=== PATIENT | male | born 1970 | race Hispanic/Latino ===

== ENCOUNTER 2017-09-20 15:38 | Inpatient (IN) | payer BC ==
[~2017-09-20] VITALS: Ht 174 cm; Wt 78.2 kg
[2017-09-20] MEDS ORDERED: MORPHINE SULFATE 4 MG/ML SYR IV STA (15:43)
[2017-09-20] MEDS ORDERED: SODIUM CHLORIDE 0.9% 1000ML 1,000 ML IV STA (15:43)
[2017-09-20] MEDS ORDERED: ONDANSETRON HCL INJ 2 MG/ML VIAL IV STA (15:43)
[2017-09-20] MEDS ORDERED: MORPHINE SULFATE 2 MG/ML SYR IV PRN ×2 (16:15→18:30)
[2017-09-20] MEDS ORDERED: SODIUM CHLORIDE FLUSH 10 ML SYR INJ PRN (16:15)
[2017-09-20] MEDS ORDERED: HYDROMORPHONE 1MG/1ML INJ IV PRN (16:15)
[2017-09-20] MEDS ORDERED: ONDANSETRON HCL INJ 2 MG/ML VIAL IV PRN (16:15)
--- NOTE | 2017-09-20 16:44 | Diagnostic Imaging Report ---
PROCEDURE:X-RAY RIGHT FOOT, COMPLETE COMPARISON:None. INDICATIONS:RULE OUT OSTEO RIGHT FOOT FINDINGS: There are no fractures, dislocations, lytic or blastic lesions. No evidence of periosteal reaction or erosion. No abnormal soft tissue calcification. Incidentally seen os trigonum and posterior calcaneal enthesophyte. The bones are well-mineralized. The soft-tissues are unremarkable. CONCLUSION: No evidence of osteomyelitis. If there is high clinical concern for osteomyelitis, consider obtaining MRI for further evaluation. Dictated by: Shine Humphrey M.D. on 09/20/2017 at 16:45 Electronically approved by: Shine Humphrey M.D. on 09/20/2017 at 16:45
[2017-09-20] MEDS ORDERED: LORAZEPAM INJ 2 MG/ML VIAL IV ONE (17:30)
[2017-09-20] MEDS ORDERED: METOPROLOL TARTRATE INJ 1 MG/ML VIAL IV ONE (17:30)
[2017-09-20] MEDS: VANCOMYCIN 1GM/NS 250 ML 250 ML IV SCH (17:42)
[2017-09-20 17:44] LABS: BASOPHILS # (AUTO) 0.1 (0.0-0.1); BASOPHILS % 0.8 % (0.0-1.0); EOSINOPHILS % 0.2 % (0.0-6.0); HEMATOCRIT 44.3 % (38.2-49.6); HEMOGLOBIN 15.1 g/dL (14.0-18.0); LYMPHOCYTES # (AUTO) 2.5 (1.0-3.2); LYMPHOCYTES % 20.6 % (18.0-39.1); MEAN CORPUSCULAR HEMOGLOBIN 28.4 pg (28-32); MEAN CORPUSCULAR HGB CONC 34.1 g/dL (31-35); MEAN CORPUSCULAR VOLUME 83.3 fL (81-99); MONOCYTES % 8.3 % (4.4-11.3); NEUTROPHILS # (AUTO) 8.4 (2.1-6.9); NEUTROPHILS % 67.7 % (38.7-80.0); PLATELET COUNT 387 x10e3/uL (140-360); RED BLOOD COUNT 5.32 x10e6/uL (4.3-5.7); RED CELL DISTRIBUTION WIDTH 11.7 % (11.7-14.4)
[2017-09-20 18:00] LABS: ALANINE AMINOTRANSFERASE 30 IU/L (0-55); ALBUMIN 3.6 g/dL (3.5-5.0); ALBUMIN/GLOBULIN RATIO 0.7 (0.8-2.0); ALKALINE PHOSPHATASE 124 IU/L (40-150); ANION GAP 19.8 mmol/L (8-16); BLOOD UREA NITROGEN 17 mg/dL (7-26); BUN/CREATININE RATIO 18 (6-25); CARBON DIOXIDE 20 mmol/L (22-29); CHLORIDE 100 mmol/L (98-107); CREATININE, SERUM 0.92 mg/dL (0.72-1.25); EST GLOMERULAR FILTRATION RATE > 60 ML/MIN (60-); GLUCOSE 309 mg/dL (74-118); POTASSIUM 3.8 mmol/L (3.5-5.1); SODIUM 136 mmol/L (136-145)
[2017-09-20 18:01] LABS: CHOL/HDL RATIO 4.9 (3.9-4.7)
[2017-09-20 18:21] LABS: THYROID STIMULATING HORMONE 0.93 uIU/mL (0.350-4.940)
[2017-09-20 18:28] LABS: LYMPHOCYTES % (MANUAL) 20 % (19-48); MONOCYTES % (MANUAL) 9 % (3.4-9.0); NEUTROPHILS % (MANUAL) 69 % (40-74); RBC MORPHOLOGY COMMENT NORMAL
[2017-09-20 18:29] LABS: PLATELET ESTIMATE SLIGHTLY INCREASED; PLATELET MORPHOLOGY COMMENT NORMAL
[2017-09-20] MEDS ORDERED: DEXTROSE 50% SYRINGE 50 ML IV PRN (18:30)
[2017-09-20] MEDS ORDERED: SODIUM CHLORIDE 0.9% 1000ML 1,000 ML ONE (18:33)
[2017-09-20] MEDS: METOPROLOL TARTRATE 50 MG TAB PO SCH ×2 (18:36→22:00)
[2017-09-20] MEDS: SODIUM CHLORIDE 0.9% 1000ML 1,000 ML IV SCH (18:36)
[2017-09-20] MEDS ORDERED: CLINDAMYCIN HC300 MG PO (18:43)
--- OUTSIDE RECORDS SUMMARY | 2017-09-20 18:55 | XMS REPORT ---
Author Author [facility] Address Unknown Phone Unavailable Care Team Providers Care Crepe Sole Wire Brusher Name Role Phone AKOSUA CLEMONS Unavailable Unavailable Problems This patient has no known problems. Allergies, Adverse Reactions, Alerts This patient has no known allergies or adverse reactions. Medications This patient has no known medications. Results Test Description Test Time Test Comments Text Results Atomic Results Result Comments FOOT RIGHT COMPLETE [facility] [address] [address] Patient Name: CAMILA JAVED MR #: [id number] : 1970 Age/Sex: 47/M Req # : [id number] Adm Physician: Ordered by: NYASIA WHEELER [employer]PENTER [employer]INTENANCE Report #: [id number] Location: ER Room/Bed: Procedure: [id number] DX/FOOT RIGHT COMPLETE Exam Date: 09/20/17 Exam Time : 1620 REPORT STATUS: Signed PROCEDURE: X-RAY RIGHT FOOT, COMPLETE COMPARISON: None. INDICATIONS: RULE OUT OSTEO RIGHT FOOT FINDINGS: There are no fractures, dislocations, lytic or blastic lesions. No evidence of periosteal reaction or erosion. No abnormal soft tissue calcification. Incidentally seen os trigonum and posterior calcaneal enthesophyte. The bones are well-mineralized. The soft-tissues are unremarkable. CONCLUSION: No evidence of osteomyelitis. If there is high clinical concern for osteomyelitis, consider obtaining MRI for further evaluation. Dictated by: Shine Dominguez M.D. on 09/20/2017 at 16:45 Electronically approved by: Shine Dominguez M.D. on 09/20/2017 at 16 :45 Dictated By: SHINE DOMINGUEZ MD 44 Transcribed By: ERIC on 09/20/171644 COPY TO: NYASIA WHEELER NP
--- NOTE | 2017-09-20 20:39 | History and Physical ---
PRIMARY CARE PHYSICIAN: None. CHIEF COMPLAINT: Right foot infection. HISTORY OF PRESENT ILLNESS: This is a 47-year-old man with no significant medical history who developed, what he described as, a pimple on the dorsal surface of his right foot about 10 days ago. He popped it and then 2 days later noted that the area became red and was tender. Due to worsening symptoms, he went to a 24-hour urgent care center who referred him to Dr. Vega. The patient was referred here to the hospital for management. The patient does admit to family history of diabetes in both parents, but he does not have a personal history of diabetes. His blood sugar is found to be 309 on lab test. He is admitted for further evaluation and management. PAST MEDICAL HISTORY: None. PAST SURGICAL HISTORY: None. ALLERGIES: PER ELECTRONIC MEDICAL RECORDS. FAMILY HISTORY: Diabetes in mother and father. SOCIAL HISTORY: The patient is . He has 2 children. Occasional cigarettes. Occasional alcohol. He has a [employer] company. MEDICATIONS: None. REVIEW OF SYSTEMS: Denies any chest pain, shortness of breath, fever or chills or sweats. Denies any polyuria or polydipsia. PHYSICAL EXAMINATION VITAL SIGNS: Reviewed. GENERAL APPEARANCE: A tired-appearing man resting in the bed. HEENT: Anicteric. Pupils responsive to light. No oral lesions. No sinus tenderness. CARDIOVASCULAR: Normal S1 and S2. Rapid heart rate. LUNGS: Good breath sounds with no wheezing. ABDOMEN: Soft and nontender. Nondistended. EXTREMITIES: The left leg appears normal. The left foot is normal. On the right foot on the dorsal surface he has 1st MTP joint erythema with what appears to be an ulcer, erythema, warmth and tenderness. There is erythema in a band-like pattern around the foot, dorsal surface. There is some pus at the site. NEUROLOGIC: Alert and oriented x3. Moving all extremities. SKIN: Dry. PSYCHIATRIC: Flat affect. LABS: Reviewed. MEDICATIONS: Reviewed. ASSESSMENT AND PLAN: A 47-Year-old man. 1. Newly diagnosed diabetes mellitus. Will treat with insulin regimen. Obtain lipid panel. 2. Diabetic foot ulcer of the right foot. Will treat empirically with antibiotics. Follow up cultures. Will obtain a wound culture. Dr. Vega is on board. 3. Hypertensive urgency. Blood pressure as high as 190/91. Will treat with medication regimen. 4. Overweight state. BMI is 28.1. Would benefit from caloric restriction, outpatient. 5. Tachycardia. Will treat with beta hipolito for control of blood pressure and heart rate. 6. Metabolic acidosis. Will rehydrate the patient. 7. Prophylaxis: Use Pepcid. DISPOSITION: IV antibiotics. Podiatry consultation. Diabetes teaching. . Control blood pressure. Job#: [id number]
[2017-09-20] MEDS: INSULIN REGULAR, HUMAN 100 UNIT/1 ML 3ML VIAL SQ SCH (21:07)
[2017-09-20] MEDS: INSULIN DETEMIR 100 UNIT/ML PEN SQ SCH (21:08)
[2017-09-20 21:30] VITALS: BP 159/92
[2017-09-20] MEDS: SIMVASTATIN 20 MG TAB PO SCH (22:00)
[2017-09-20] MEDS ORDERED: SODIUM CHLORIDE 0.9% 250ML 250 ML ONE (22:23)
[2017-09-20] MEDS: PIPER-TAZ 3.375 GM 50 ML IV SCH (23:00)
[2017-09-20 23:59] VITALS: BP 159/92
[2017-09-21] VITALS (8 sets, daily range): BP systolic 147–185; BP diastolic 77–92
[2017-09-21] MEDS: VANCOMYCIN 1GM/NS 250 ML 250 ML IV SCH ×2 (04:04→15:48)
[2017-09-21] MEDS: PIPER-TAZ 3.375 GM 50 ML IV SCH ×3 (05:38→21:50)
[2017-09-21] MEDS: METOPROLOL TARTRATE 50 MG TAB PO SCH ×3 (06:49→21:50)
[2017-09-21 06:56] LABS: BASOPHILS # (AUTO) 0.1 (0.0-0.1); BASOPHILS % 1.3 % (0.0-1.0); EOSINOPHILS # (AUTO) 0.1 (0.0-0.4); EOSINOPHILS % 1.3 % (0.0-6.0); HEMATOCRIT 38.5 % (38.2-49.6); LYMPHOCYTES # (AUTO) 2.6 (1.0-3.2); LYMPHOCYTES % 25.8 % (18.0-39.1); MEAN CORPUSCULAR HEMOGLOBIN 28.6 pg (28-32); MEAN CORPUSCULAR HGB CONC 33.8 g/dL (31-35); MEAN CORPUSCULAR VOLUME 84.8 fL (81-99); MONOCYTES # (AUTO) 0.9 (0.2-0.8); MONOCYTES % 8.9 % (4.4-11.3); NEUTROPHILS # (AUTO) 5.9 (2.1-6.9); NEUTROPHILS % 59.2 % (38.7-80.0); PLATELET COUNT 340 x10e3/uL (140-360); RED BLOOD COUNT 4.54 x10e6/uL (4.3-5.7); RED CELL DISTRIBUTION WIDTH 11.9 % (11.7-14.4)
[2017-09-21 07:26] LABS: ALANINE AMINOTRANSFERASE 26 IU/L (0-55); ALBUMIN 2.8 g/dL (3.5-5.0); ALBUMIN/GLOBULIN RATIO 0.7 (0.8-2.0); ALKALINE PHOSPHATASE 96 IU/L (40-150); ANION GAP 12.3 mmol/L (8-16); BLOOD UREA NITROGEN 12 mg/dL (7-26); BUN/CREATININE RATIO 15 (6-25); CALCIUM 8.9 mg/dL (8.4-10.2); CARBON DIOXIDE 26 mmol/L (22-29); CHLORIDE 104 mmol/L (98-107); EST GLOMERULAR FILTRATION RATE > 60 ML/MIN (60-); GLUCOSE 237 mg/dL (74-118); POTASSIUM 4.3 mmol/L (3.5-5.1); SODIUM 138 mmol/L (136-145)
--- NOTE | 2017-09-21 07:40 | Progress Note ---
DATE: September 21, 2017 TIME: 7:13 a.m. OVERNIGHT: No events. REVIEW OF SYSTEMS: Denies any dizziness or chest pain. VITAL SIGNS: Reviewed. PHYSICAL EXAMINATION GENERAL: A tired-appearing man resting in the bed. HEENT: Anicteric. CARDIOVASCULAR: Normal S1 and S2. LUNGS: Moderate breath sounds. ABDOMEN: Soft. Nontender, nondistended. EXTREMITIES: Right foot with lesion in the 1st MTP joint with erythema, tenderness, warmth, and edema and erythema of the surrounding region. NEUROLOGIC: Alert and oriented x3. Moving all extremities. SKIN: Dry. PSYCHIATRIC: Normal affect. LABS: Reviewed. MEDICATIONS: Reviewed. ASSESSMENT AND PLAN: A 47-year-old man. 1. Newly diagnosed diabetes mellitus. His hemoglobin A1c is 10.6. His LDL is 148, and triglycerides are 111. 2. Hypertriglyceridemia. LDL is 148. 3. Hypertensive urgency. Continue medication regimen. Treat as appropriate. 4. Overweight state. BMI is 28.1. He needs caloric restriction. 5. Tachycardia. Improving with beta hipolito. 6. Metabolic acidosis. Will rehydrate. 7. Diabetic foot ulcer of the right foot. Continue IV antibiotics, IV Zosyn and IV vancomycin. Podiatry management pending today. Job#: [id number]
[2017-09-21] MEDS: FAMOTIDINE 20 MG TAB PO SCH ×2 (07:55→16:02)
[2017-09-21] MEDS: INSULIN REGULAR, HUMAN 100 UNIT/1 ML 3ML VIAL SQ SCH ×4 (08:40→21:00)
--- NOTE | 2017-09-21 08:48 | Consultation ---
DATE OF CONSULTATION: September 21, 2017 REASON FOR CONSULTATION: Abscess with a grade 4 ulcer to the dorsal aspect of the right foot for approximately 2 weeks now. HISTORY OF PRESENT ILLNESS: This is a pleasant 47-year-old man who was seen at the office yesterday, who presented after he relates that he developed a pimple to the dorsal aspect, right foot. Scraped it and the pimple became bigger, and his foot started turning red up to the ankle joint area. He started having some fever and chills. At this point, secondary to the infection and the ulceration and abscess, he was instructed to present to the emergency room at [facility] to start IV antibiotics. The patient instructed he would be scheduled for surgical debridement of ulceration. PAST MEDICAL HISTORY: Unremarkable until he was found to have elevated blood glucose in the ER. Does have a family history of diabetes, but was not taking any type of medications at home. PAST SURGICAL HISTORY: The patient denies. SOCIAL HISTORY: Denies any smoking, drinking or recreational drug use. ALLERGIES: THE PATIENT DENIES. FAMILY HISTORY: Remarkable for diabetes. CURRENT MEDICATIONS: Listed in the chart, including IV Zosyn and vancomycin. REVIEW OF SYSTEMS CARDIAC: Denies any palpitations or arrhythmias. RESPIRATORY: Denies any shortness of breath or productive cough. GASTROINTESTINAL: Denies any diarrhea or constipation. GENITOURINARY: Denies hematuria or problems voiding. PHYSICAL EXAMINATION VITALS: Afebrile, pulse rate 96, respirations 18, blood pressure 177/90, O2 saturation at 95%. PODIATRIC PHYSICAL EXAMINATION VASCULAR: Pedal pulses to both the dorsalis pedis and posterior tibial arteries are palpable. CFT to all toes less than 3 seconds. NEUROLOGICAL: Seems to be within normal limits to all 4 extremities. MUSCULOSKELETAL: Shows muscle mass to be asymmetrical. Some swelling noted to the right foot when compared to the left. Edema present up to the ankle joint area with cellulitis also present up to the ankle area when compared to the left. DERMATOLOGICAL: Reveals an abscess with a grade 4 ulceration to the dorsal aspect of the 1st metatarsophalangeal joint. Very tender upon palpation. LABS: Noted. Has a white blood cell count dropping from 12.4 to 9.6, hemoglobin 13 with a platelet count of 340,000. X-rays were negative for any gas in the tissue, osteomyelitic changes. ASSESSMENT: Grade 4 ulcer with abscess, right foot. PLAN: Will continue IV antibiotics. Will start diluted wet-to-dry Betadine dressing. The patient will be taken for surgical intervention tomorrow for extensive debridement of ulcer possibly down to bone. The patient understands may need further debridement. Will continue IV antibiotics and local wound care for now. Job#: [id number] RI
[2017-09-21 09:31] LABS: EOSINOPHILS % (MANUAL) 1 % (0-7); LYMPHOCYTES % (MANUAL) 23 % (19-48); MONOCYTES % (MANUAL) 3 % (3.4-9.0); MYELOCYTES % (MANUAL) 1 % (0-0); NEUTROPHILS % (MANUAL) 67 % (40-74); RBC MORPHOLOGY COMMENT NORMAL
[2017-09-21 09:32] LABS: ANISOCYTOSIS SLIGHT; PLATELET ESTIMATE ADEQUATE; PLATELET MORPHOLOGY COMMENT NORMAL
--- NOTE | 2017-09-21 15:02 | Consultation ---
DATE OF CONSULTATION: September 21, 2017 REQUESTING PHYSICIAN: Jd Read MD REASON FOR CONSULTATION: Peripheral arterial disease. HISTORY OF PRESENT ILLNESS: This is a 47-year-old man with newly diagnosed diabetes mellitus, hypertension, and hyperlipidemia who presented with complaints of right foot pain and swelling. The patient reports he was in his usual state of health until approximately a week and a half ago when he first noticed his right foot began to swell with warmth and pain. This progressively worsened and he noted a blister on his right foot on Tuesday. He presented to an urgent care and was given some oral antibiotics. He was subsequently referred to Dr. Vega who instructed the patient to present to the ER for further care. He denies any chest pain, shortness of breath, palpitations, edema, orthopnea, PND, lightheadedness or syncope. He has no personal history of heart disease. Cardiology is consulted to evaluate for peripheral arterial disease. PAST MEDICAL HISTORY: Diabetes mellitus, hypertension, hyperlipidemia, all newly diagnosed. PAST SURGICAL HISTORY: None. ALLERGIES: NO KNOWN DRUG ALLERGIES. MEDICATIONS: Please see EMR. SOCIAL HISTORY: He smokes a couple of cigarettes every other day for the last 25 years. He does use marijuana occasionally. FAMILY HISTORY: Noncontributory. PHYSICAL EXAMINATION VITAL SIGNS: Temperature 97.5 degrees, pulse 105, respiratory 18, blood pressure 167/77, oxygen saturation 100% on room air. GENERAL: Well-developed, well-nourished man in no acute distress. HEENT: Normocephalic, atraumatic. Pupils are equal with no scleral icterus. NECK: Supple. No thyromegaly or cervical lymphadenopathy. No carotid bruit. LUNGS: Clear to auscultation bilaterally. No wheezes or crackles. CARDIOVASCULAR: Normal rate, regular rhythm. No murmur. Normal S1 and S2. ABDOMEN: Soft. Nontender. EXTREMITIES: No edema. Right foot dressing is noted. NEUROLOGIC: Nonfocal exam. LABS: Sodium 138, potassium 4.3, chloride 104, CO2 26, BUN 12, creatinine 0.8. Cholesterol 214, LDL 148, HDL 44. FOOT X-RAY: No evidence of osteomyelitis. If there is high clinical concern for osteomyelitis consider obtaining MRI for further evaluation. IMPRESSION 1. Diabetic ulcer of the right foot. 2. Newly diagnosed diabetes mellitus. 3. Hypertension. 4. Hyperlipidemia. RECOMMENDATIONS: Bilateral lower extremity arterial Dopplers have been ordered. Obtain EKG. Continue current cardiac medications. Wound care per podiatry. Start lisinopril given elevated blood pressure and diabetes mellitus. Further recommendations pending arterial Doppler results. Thank you for this consult. Will continue to follow. SARAH BEAUCHAMP MD Job#: [id number] DG
[2017-09-21] MEDS: SODIUM CHLORIDE 0.9% 1000ML 1,000 ML IV SCH (15:15)
--- NOTE | 2017-09-21 15:17 | Diagnostic Imaging Report ---
PROCEDURE: A single AP view of the chest. COMPARISON: None. INDICATIONS: ABSCESS, ANESTHESIA FINDINGS: Lines/tubes: None. Lungs: The lungs are moderately inflated and clear. There is no evidence of pneumonia or pulmonary edema. Pleura: There is no pleural effusion or pneumothorax. Heart and mediastinum: The heart and the mediastinum are unremarkable. Bones: No acute bony abnormality. IMPRESSION: No acute cardiopulmonary disease. Dictated by: Kurtis Carroll M.D. on 09/21/2017 at 15:18 Electronically approved by: Kurtis Carroll M.D. on 09/21/2017 at 15:18
[2017-09-21] MEDS: SIMVASTATIN 20 MG TAB PO SCH (21:00)
[2017-09-21] MEDS: INSULIN DETEMIR 100 UNIT/ML PEN SQ SCH (21:00)
[2017-09-22] VITALS (10 sets, daily range): BP systolic 145–182; BP diastolic 78–88
[2017-09-22] MEDS: SODIUM CHLORIDE 0.9% 1000ML 1,000 ML IV SCH (02:58)
[2017-09-22] MEDS: VANCOMYCIN 1GM/NS 250 ML 250 ML IV SCH ×2 (03:08→16:30)
[2017-09-22] MEDS: METOPROLOL TARTRATE 50 MG TAB PO SCH ×3 (05:22→20:36)
[2017-09-22] MEDS: PIPER-TAZ 3.375 GM 50 ML IV SCH ×3 (05:22→21:21)
[2017-09-22] MEDS ORDERED: BACITRACIN 50,000 UNIT VIAL ONE (06:19)
[2017-09-22] MEDS ORDERED: BETAMETHASONE DISODIUM PHOS 6 MG/ML VIAL ONE (06:19)
[2017-09-22] MEDS ORDERED: BUPIVACAINE HCL 0.5% INJ 30 ML VIAL INJ ONE (06:19)
[2017-09-22] MEDS ORDERED: LORAZEPAM INJ 2 MG/ML VIAL IV PRN (07:15)
[2017-09-22] MEDS ORDERED: MUPIROCIN 2% OINT 22 GM TUBE ONE (07:20)
[2017-09-22] MEDS: INSULIN REGULAR, HUMAN 100 UNIT/1 ML 3ML VIAL SQ SCH ×4 (07:30→20:37)
[2017-09-22] MEDS ORDERED: INSULIN REGULAR, HUMAN 100 UNIT/1 ML 3ML VIAL ONE (08:50)
--- NOTE | 2017-09-22 08:54 | Operative Report ---
DATE OF PROCEDURE: September 22, 2017 PREOPERATIVE DIAGNOSIS: Grade-4 ulcer with cellulitis, right foot. POSTOPERATIVE DIAGNOSIS: Grade-4 ulcer with cellulitis, right foot. OPERATION PERFORMED: Debridement of ulcer down to bone. PROCEDURE IN DETAIL: Patient was taken into the operating room and placed on the operating room table in supine position. Following induction of general anesthesia by the anesthesiologist, Webril wrap was placed on the patient's right thigh followed by application of a right thigh tourniquet. The right lower extremity was then prepped and draped in the usual aseptic manner, and the following procedure was then performed: Procedure #1: Extensive debridement down to bone, right foot. Attention was directed to the dorsal aspect of the right foot where, utilizing a sterile #10 blade, an incision was made through the ulceration down to bone. Abscess was encountered and cultured for aerobic and anaerobic growth. At this point, extensive debridement was carried down past tendon and into bone. Necrotic tissue was removed. At this point, the thigh tourniquet was then released. The areas were then copiously flushed with sterile antibiotic solution and suctioned copiously. Debridement was carried down until good, viable tissue was achieved. Approximately 10 mL of 0.5% plain Marcaine was then used to achieve local anesthesia of the above-mentioned surgical area. Sterile dressing was applied. Patient will remain in the hospital for IV antibiotics. He may need further surgery, which may include partial resection of the 1st metatarsal depending on how he responds. We will continue to monitor. Continue IV antibiotics. Continue local wound care. Blood loss from the surgery was minimal. Job#: [id number]
[2017-09-22] MEDS: ALPRAZOLAM 0.25 MG TAB PO SCH ×2 (09:00→16:40)
--- NOTE | 2017-09-22 09:10 | Diagnostic Imaging Report ---
PROCEDURE:X-RAY RIGHT FOOT, TWO VIEWS COMPARISON:Right foot series 09/20/2017. INDICATIONS:POST OP RIGHT FOOT SURGERY FINDINGS: There are no fractures, dislocations, lytic or blastic lesions. The bones are well-mineralized. The soft-tissues are unremarkable. Overlying bandage material limits fine bony detail. CONCLUSION: No acute radiographic abnormality. Dictated by: Jacek Fernandez M.D. on 09/22/2017 at 9:10 Electronically approved by: Jacek Fernandez M.D. on 09/22/2017 at 9:10
[2017-09-22] MEDS: FAMOTIDINE 20 MG TAB PO SCH ×2 (09:57→16:40)
[2017-09-22] MEDS ORDERED: LISINOPRIL 10 MG TAB PO ONE (14:30)
--- NOTE | 2017-09-22 14:43 | Progress Note ---
DATE: September 22, 2017 CARDIOLOGY PROGRESS NOTE SUBJECTIVE: Patient denies chest pain or shortness of breath. He is status post right foot debridement. OBJECTIVE VITAL SIGNS: Temperature 96.1 degrees, pulse 106, respiratory rate 18, blood pressure 146/85, oxygen saturation 99% on room air. GENERAL: Awake, alert, in no acute distress. LUNGS: Clear to auscultation bilaterally. No wheezes or crackles. CARDIOVASCULAR: Normal rate, regular rhythm. No murmur. Normal S1 and S2. ABDOMEN: Soft, nontender. EXTREMITIES: No edema. Right foot with surgical dressing in place. CARDIAC MEDICATIONS 1. Metoprolol tartrate 100 mg p.o. q.12 h. 2. Simvastatin 20 mg p.o. nightly. LABS: None today. BILATERAL LOWER EXTREMITY ARTERIAL DOPPLER: Without evidence of significant peripheral arterial disease. IMPRESSION 1. Diabetic ulcer of the right foot. 2. Newly diagnosed diabetes mellitus. 3. Hypertension. 4. Hyperlipidemia. RECOMMENDATIONS: Patient's blood pressure remains elevated. Start lisinopril. Continue current cardiac medications otherwise. Bilateral lower extremity arterial Dopplers were without evidence of PAD. No peripheral angiogram is indicated at this time. We will monitor wound for wound healing. Wound care per Podiatry. Antibiotics per primary service. Thank you for this consult. We will continue to follow. Job#: [id number] DIANE
[2017-09-22] MEDS ORDERED: SEVOFLURANE INHAL SOLN 250 ML PEN BTL ONE (17:32)
[2017-09-22] MEDS ORDERED: ONDANSETRON HCL INJ 2 MG/ML VIAL ONE (17:32)
[2017-09-22] MEDS ORDERED: KETOROLAC TROMETHAMINE 30 MG/ML VIAL ONE (17:32)
[2017-09-22] MEDS ORDERED: DEXAMETHASONE SOD PHOS INJ 4 MG/ML VIAL ONE (17:32)
[2017-09-22] MEDS ORDERED: LIDOCAINE HCL 2% LOCAL INJ 5 ML SDV VIAL INJ ONE (17:32)
[2017-09-22] MEDS ORDERED: PROPOFOL IV EMULSION 10 MG/ML 20 ML VIAL ONE (17:32)
[2017-09-22] MEDS ORDERED: FENTANYL CITRATE/PF 100MCG/2 ML INJ ONE (17:44)
[2017-09-22] MEDS ORDERED: MIDAZOLAM HCL 2 MG/2 ML VIAL ONE (17:44)
[2017-09-22] MEDS: SIMVASTATIN 20 MG TAB PO SCH (20:36)
[2017-09-22] MEDS: INSULIN DETEMIR 100 UNIT/ML PEN SQ SCH (20:38)
[2017-09-23] VITALS (7 sets, daily range): BP systolic 139–165; BP diastolic 67–86
[2017-09-23] MEDS: VANCOMYCIN 1GM/NS 250 ML 250 ML IV SCH ×2 (03:10→15:48)
[2017-09-23] MEDS: PIPER-TAZ 3.375 GM 50 ML IV SCH ×3 (05:38→21:47)
[2017-09-23] MEDS: METOPROLOL TARTRATE 50 MG TAB PO SCH ×2 (08:19→20:58)
[2017-09-23] MEDS: FAMOTIDINE 20 MG TAB PO SCH ×2 (08:19→15:53)
[2017-09-23] MEDS: METFORMIN HCL 500 MG TAB PO SCH ×2 (08:19→16:14)
--- NOTE | 2017-09-23 08:22 | Progress Note ---
DATE: September 23, 2017 TIME: 8:05 a.m. OVERNIGHT: Pain controlled. REVIEW OF SYSTEMS: Denies any dizziness or chest pain. PHYSICAL EXAMINATION VITAL SIGNS: Reviewed. GENERAL: A tired-appearing man resting in bed. HEENT: Anicteric. CARDIOVASCULAR: Normal S1 and S2. LUNGS: Moderate breath sounds. ABDOMEN: Soft and nontender. EXTREMITIES: Right foot with dressing in place. Clean and dry. SKIN: Dry. PSYCHIATRIC: Normal affect. LABS: Reviewed. MEDICATIONS: Reviewed. ASSESSMENT: A 47-year-old man with: 1. Newly diagnosed diabetes mellitus: Hemoglobin A1c 10.6, LDL 140. 2. Hyperlipidemia. 3. Hypertensive urgency. 4. Overweight state: Body mass index 28.1. 5. Tachycardia. 6. Metabolic acidosis. 7. Diabetic foot ulcer. PLAN 1. He is status post debridement. 2. Continue IV antibiotics. 3. Obtain labs this morning. 4. Continue insulin regimen and start metformin. 5. Titrate beta hipolito up. 6. Discharge planning. Job#: [id number] LOVE
[2017-09-23] MEDS: INSULIN REGULAR, HUMAN 100 UNIT/1 ML 3ML VIAL SQ SCH ×4 (08:24→20:55)
[2017-09-23] MEDS: ALPRAZOLAM 0.25 MG TAB PO SCH ×2 (08:25→16:15)
--- NOTE | 2017-09-23 08:34 | Progress Note ---
DATE: September 22, 2017 TIME: 8:00 a.m. OVERNIGHT: No events. REVIEW OF SYSTEMS: Denies any dizziness, chest pain. PHYSICAL EXAMINATION: VITAL SIGNS: Reviewed. GENERAL APPEARANCE: Tired-appearing man resting in bed. HEENT: Anicteric. CARDIOVASCULAR: Normal S1 and S2. LUNGS: Moderate breath sounds. ABDOMEN: Soft, nontender, nondistended. EXTREMITIES: He has trace edema on the right foot. SKIN: Dry. PSYCHIATRIC: Flat affect. LABS: Reviewed. MEDICATIONS: Reviewed. ASSESSMENT: A 47-year-old man. 1. Newly diagnosed diabetes. Hemoglobin A1c 10.6, LDL 140, triglycerides 111. 2. Hyperlipidemia. 3. Overweight state. Body mass index 28.1. 4. Hypertensive urgency. 5. Metabolic acidosis. 6. Diabetic foot ulcer. PLAN: 1. Continue IV antibiotics. 2. Debridement. 3. Pain control. 4. Diabetes management. 5. Continue prophylaxis. Job#: [id number]
--- NOTE | 2017-09-23 08:45 | Progress Note ---
DATE: September 23, 2017 SUBJECTIVE: Patient is doing better. Denying any fever, chills, nausea or vomiting. OBJECTIVE: Vitals: Afebrile. Pulse rate 89, respirations 17, blood pressure 145/70, O2 saturation 98%. Labs noted. Decreased swelling to the right leg noted with CFT to all toes of the right foot within normal limits. ASSESSMENT: Status post deep debridement of the right foot ulceration. PLAN: Will continue IV antibiotics. We will leave the dressing intact for a couple of days. Job#: [id number]
[2017-09-23] MEDS ORDERED: LISINOPRIL 10 MG TAB PO SCH (09:00)
[2017-09-23] MEDS: SODIUM CHLORIDE 0.9% 1000ML 1,000 ML IV SCH (15:15)
--- NOTE | 2017-09-23 17:06 | Progress Note ---
DATE: September 23, 2017 CARDIOLOGY PROGRESS NOTE SUBJECTIVE: Patient denies chest pain or shortness of breath. OBJECTIVE VITAL SIGNS: Temperature 97.6 degrees, pulse 75, respiratory rate 18, blood pressure 162/86, oxygen saturation 98% on room air. GENERAL: Awake, alert, in no acute distress. LUNGS: Clear to auscultation bilaterally. No wheezes or crackles. CARDIOVASCULAR: Normal rate, regular rhythm. No murmur. Normal S1 and S2. ABDOMEN: Soft, nontender. EXTREMITIES: No edema. Right foot with surgical dressing in place. CARDIAC MEDICATIONS 1. Metoprolol tartrate 150 mg p.o. q.12 h. 2. Lisinopril 10 mg p.o. daily. LABS: None today. IMPRESSION 1. Diabetic ulcer of the right foot. 2. Newly diagnosed diabetes mellitus. 3. Hypertension. 4. Hyperlipidemia. RECOMMENDATIONS: The patient's blood pressure remains poorly controlled despite addition of lisinopril. We will increase. Continue current cardiac medications otherwise. Bilateral lower extremity arterial Dopplers were without evidence of PAD. No angiogram is indicated at this time. Monitor wound for wound healing. Wound care per Podiatry. Antibiotics per primary service. Thank you for this consult. We will continue to follow. Job#: [id number] EV
[2017-09-23] MEDS: INSULIN DETEMIR 100 UNIT/ML PEN SQ SCH (20:57)
[2017-09-23] MEDS: SIMVASTATIN 20 MG TAB PO SCH (20:59)
[2017-09-24] VITALS (9 sets, daily range): BP systolic 144–167; BP diastolic 65–80
[2017-09-24] MEDS: VANCOMYCIN 1GM/NS 250 ML 250 ML IV SCH ×2 (03:45→15:21)
[2017-09-24] MEDS: PIPER-TAZ 3.375 GM 50 ML IV SCH ×3 (06:55→22:33)
[2017-09-24] MEDS: INSULIN REGULAR, HUMAN 100 UNIT/1 ML 3ML VIAL SQ SCH ×4 (07:30→20:45)
[2017-09-24] MEDS: FAMOTIDINE 20 MG TAB PO SCH ×2 (07:59→17:57)
[2017-09-24] MEDS: METOPROLOL TARTRATE 50 MG TAB PO SCH ×2 (08:00→20:48)
[2017-09-24] MEDS: METFORMIN HCL 500 MG TAB PO SCH ×2 (08:00→17:59)
[2017-09-24] MEDS: ALPRAZOLAM 0.25 MG TAB PO SCH ×2 (08:00→17:59)
[2017-09-24] MEDS ORDERED: LISINOPRIL 20 MG TAB PO SCH (09:00)
[2017-09-24] MEDS ORDERED: LISINOPRIL 10 MG TAB PO SCH (09:00)
--- NOTE | 2017-09-24 13:11 | Progress Note ---
DATE: September 24, 2017 PODIATRY PROGRESS NOTE SUBJECTIVE: Patient seen at bedside. Doing somewhat better. Denies any history of fever, chills, nausea or vomiting. Still has some mild tenderness to the right lower extremity. Patient is seen at bedside, accompanied by parents. OBJECTIVE VITAL SIGNS: Afebrile. Vital signs stable. VASCULATURE: CFT to all toes less than 4 seconds. SKIN: Temperature warm to touch. EXTREMITIES: Some swelling noted to the right lower extremity. ASSESSMENT: Grade 4 ulcer with cellulitis with possible osteomyelitis. PLAN: Will continue IV antibiotics such as vancomycin and Zosyn. Dressing will be changed either tomorrow or Tuesday. Will leave it alone for now. Continue minimal weightbearing. Job#: [id number] EV
--- NOTE | 2017-09-24 14:50 | Progress Note ---
DATE: September 24, 2017 CARDIOLOGY PROGRESS NOTE SUBJECTIVE: Patient denies chest pain or shortness of breath. OBJECTIVE VITAL SIGNS: Temperature 97.7 degrees, pulse 78, respiratory rate 20, blood pressure 144/73, oxygen saturation 98% on room air. GENERAL: Awake, alert, in no acute distress. LUNGS: Clear to auscultation bilaterally. No wheezes or crackles. CARDIOVASCULAR: Normal rate, regular rhythm. No murmur. Normal S1 and S2. ABDOMEN: Soft, nontender. EXTREMITIES: No edema. Right foot with surgical dressing in place. CARDIAC MEDICATIONS 1. Lisinopril 20 mg p.o. daily. 2. Metoprolol tartrate 150 mg p.o. q.12 h. 3. Simvastatin 20 mg p.o. nightly. LABS: None today. IMPRESSION 1. Diabetic ulcer of the right foot. 2. Newly diagnosed diabetes mellitus. 3. Hypertension. 4. Hyperlipidemia. RECOMMENDATIONS: Patient's blood pressure remains poorly controlled despite lisinopril. We will increase further. Continue current cardiac medications otherwise. Bilateral lower extremity arterial Dopplers were without evidence of PAD. No angiogram is indicated at this time. Monitor wound for wound healing. Wound care per Podiatry. Antibiotics per primary service. Thank you for this consult. We will continue to follow. Job#: [id number] DIANE
--- NOTE | 2017-09-24 15:58 | Progress Note ---
DATE: September 24, 2017 TIME OF SERVICE: 3:15 p.m. OVERNIGHT EVENTS: No events overnight occurred. SUBJECTIVE DATA REVIEW OF SYSTEMS: The patient denies any complaints. He reports he is feeling better. He reports his pain is well controlled, and he has not really needed any pain medicine. He reports that he has been seen by Dr. Vega, and understands the plan to keep the dressing in place for today. PHYSICAL EXAMINATION VITAL SIGNS: Have been stable. His blood pressure is 144/73, heart rate 78, respiratory rate 20, temp of 97.7, SpO2 on room air is 98%. GENERAL: The patient is in no acute distress. He is awake and alert. He is adequately nourished. HEENT: His sclerae are clear. His extraocular movements are intact. His mucous membranes are moist. CARDIOVASCULAR: S1 and S2. No S3 or S4. RESPIRATORY: His breath sounds are clear bilaterally. He has symmetric chest expansion. He is in no acute distress. ABDOMEN: His abdomen is soft, nontender and nondistended. Bowel sounds are present times 4. EXTREMITIES: He is able to move all extremities well. He has a dressing to his right foot. He has some mild pretibial edema to the right lower extremity. Capillary refill is less than 3 seconds to his toes on the right foot. INTEGUMENTARY: His skin is warm and dry. He has the foot ulcer to the right foot as noted above. PSYCHIATRY: He has normal mood and affect. LABORATORY DATA: His labs have been reviewed. His glucose continues to trend up in the 200s. MEDICATIONS: His med list has been reviewed. ASSESSMENT AND PLAN: Jean Barron is a 47-year-old male admitted with undiagnosed diabetes mellitus and a diabetic foot ulcer to the right foot. 1. Diabetic foot ulcer: Will continue dressing changes as per Dr. Vega's recommendations. Continue his antibiotic regimen. 2. Diabetes mellitus: This is newly diagnosed. The patient denies any history of this although he does note that his father is also diabetic. His hemoglobin A1c was 10.6 on admission. He has been receiving basal and bolus insulin. His glucose continues to be in the 200-250 range with his basal dose of 8 units of Levemir and sliding scale. He has received a total of 30 units additional sliding scale insulin. Will increase his Levemir and continue to monitor glucose and need for titration of the basal insulin. Continue fingersticks a.c. and at night. Continue diabetic diet. 3. Hypertension: His blood pressure is better controlled. His systolic range has been 140-160, diastolic 70-80. His antihypertensive agents have been increased per Dr. Sun in cardiology. Will continue to monitor his blood pressure. Continue his current medication regimen. 4. Hyperlipidemia: Will continue his statin. He does have Gu's at the bedside. I did discuss dietary modifications with him regarding his diabetes and his hyperlipidemia, and need to find a way to adhere to a heart-healthy and diabetic diet. DISCHARGE PLANNING: Continue current regimen. Continue management of his foot ulcer per Dr. Vega's recommendations. Continue local wound care. Continue pain management. DICTATED BY ARLEEN CONDE NP Job#: [id number] LOVE
[2017-09-24] MEDS: LISINOPRIL 20 MG TAB PO SCH (17:59)
[2017-09-24] MEDS: SODIUM CHLORIDE 0.9% 1000ML 1,000 ML IV SCH ×2 (17:59→21:27)
[2017-09-24] MEDS: INSULIN DETEMIR 100 UNIT/ML PEN SQ SCH (20:45)
[2017-09-24] MEDS: SIMVASTATIN 20 MG TAB PO SCH (20:48)
[2017-09-25] VITALS (8 sets, daily range): BP systolic 137–173; BP diastolic 74–86
[2017-09-25] MEDS: VANCOMYCIN 1GM/NS 250 ML 250 ML IV SCH ×2 (03:45→15:45)
[2017-09-25] MEDS: PIPER-TAZ 3.375 GM 50 ML IV SCH ×3 (06:10→21:48)
[2017-09-25] MEDS: FAMOTIDINE 20 MG TAB PO SCH ×2 (07:30→17:05)
[2017-09-25] MEDS: INSULIN REGULAR, HUMAN 100 UNIT/1 ML 3ML VIAL SQ SCH ×4 (07:30→20:45)
[2017-09-25] MEDS: METFORMIN HCL 500 MG TAB PO SCH ×2 (08:00→17:06)
[2017-09-25] MEDS: ALPRAZOLAM 0.25 MG TAB PO SCH ×2 (09:53→17:06)
[2017-09-25] MEDS: METOPROLOL TARTRATE 50 MG TAB PO SCH ×2 (09:53→20:55)
[2017-09-25] MEDS: LISINOPRIL 20 MG TAB PO SCH ×2 (09:53→17:06)
--- NOTE | 2017-09-25 12:41 | Progress Note ---
DATE: September 25, 2017 MEDICINE PROGRESS NOTE TIME OF SERVICE: 11:45 a.m. OVERNIGHT: No acute events SUBJECTIVE DATA/REVIEW OF SYSTEMS: Patient denies shortness of breath, chest pain, headache, nausea, vomiting, diarrhea. Pain well controlled per patient. OBJECTIVE VITAL SIGNS: T 97.5 oral, P 83, R 18, BP 137/74, SpO2 98% on room air. GENERAL APPEARANCE: This is a middle-aged man resting supine in bed, in no acute distress. HEENT: Normocephalic, atraumatic. PERRLA. Mucous membranes moist and intact, both ocular and oral. CARDIOVASCULAR: S1 and S2 auscultated with regular rate and rhythm. No clicks, murmurs or rubs appreciated. RESPIRATORY: His breath sounds are bilaterally clear in all cintron with good excursion. ABDOMEN: Soft, nontender, not distended. Positive bowel sounds in all 4 quadrants. EXTREMITIES: Intact dressing to right lower extremity, covered by Axel wrap. No palpable PT pulse appreciated. However, lower extremity is warm, dry, and skin is intact where assessed. Slight edema to the pretibial area with good capillary refill. INTEGUMENTARY: Dry. PSYCHIATRIC: Normal mood and affect. LAB: Previous values reviewed. [id number] glucose in the last 24 hours with a max of 233 and a minimum of 169. MEDICATIONS 1. Lisinopril 20 mg p.o. b.i.d. 2. Lopressor 150 mg p.o. q.12 h. 3. Xanax 0.25 mg p.o. b.i.d. 4. Metformin 500 mg b.i.d. by mouth with meals. 5. Pepcid 20 mg b.i.d. a.c. 6. Regular human insulin per sliding scale a.c. and nightly. 7. Zosyn q.8 h. IV. 8. Vancomycin q.12 h. IV. 9. Sodium chloride IV solution at 40 mL per hour. 10. Zocor 20 mg p.o. nightly. 11. Insulin detemir/Levemir 10 units subcutaneous at nightly. 12. Ativan 0.25 mg p.o. q.6 h. as needed for anxiety. Additionally, patient has as-needed Zofran and D50. ASSESSMENT AND PLAN: This is a 47-year-old male with 1. Diabetic foot ulcer. Ongoing assessment per Dr. Vega and follow up on his recommendations. Continue IV antibiotic therapy. 2. Diabetes mellitus type 2 diagnosed recently. A1c was 10.6 on admission. Basal and sliding-scale insulin as above with noted Levemir increased on September 24 with fingersticks a.c. and nightly. Improvement noted as glucose less than 200 since admission based on dosage adjustment. Continue titrating medication in another day. 3. Hypertension. BP per cardiology recommendations. Will continue to monitor with current medication regimen. 4. Hyperlipidemia. Continue statin. Dietary education and weight management as an outpatient. 5. Prophylaxis. Continue IV Pepcid. Patient ambulating as needed and SCD to the left lower extremity. 6. Disposition. Continue vancomycin trough today and continue current regimen with cardiology and podiatry input. Continue local wound care and pain management. Dictated by: Anaid Santoro NP Job#: [id number] EV
--- NOTE | 2017-09-25 14:12 | Progress Note ---
DATE: September 25, 2017 CARDIOLOGY PROGRESS NOTE SUBJECTIVE: Patient denies chest pain or shortness of breath. OBJECTIVE VITAL SIGNS: Temperature 97.9 degrees, pulse 93, respiratory rate 18, blood pressure 173/86, and oxygen saturation 98% on room air. GENERAL: Awake and alert, in no acute distress. LUNGS: Clear to auscultation bilaterally. No wheezes or crackles. CARDIOVASCULAR: Normal rate. Regular rhythm. No murmur. Normal S1 and S2. ABDOMEN: Soft and nontender. EXTREMITIES: No edema. Right foot with surgical dressing in place. CARDIAC MEDICATIONS 1. Lisinopril 20 mg p.o. b.i.d. 2. Metoprolol 150 p.o. q. 12h. 3. Simvastatin 20 mg p.o. at bedtime. LABS: None today. TELEMETRY: Normal sinus rhythm. IMPRESSION 1. Diabetic ulcer of the right foot. 2. Newly diagnosed diabetes mellitus. 3. Hypertension. 4. Hyperlipemia. RECOMMENDATIONS: The patient's blood pressure is labile, but improved with addition of lisinopril, likely needs an additional antihypertensive agent. We will start low-dose amlodipine. Continue current cardiac medications otherwise. Bilateral lower extremity arterial Dopplers without evidence of PAD. No angiogram is indicated at this time. Monitor wound for healing. Wound care and antibiotics per primary service. Thank you for this consult. We will continue to follow. Job#: [id number] ANANDA
--- NOTE | 2017-09-25 16:12 | Progress Note ---
DATE: September 25, 2017 SUBJECTIVE: Patient was seen at bedside. Doing significantly better. Decreased pain to the right lower extremity. OBJECTIVE VITAL SIGNS: Afebrile, pulse rate 93, respirations 18, blood pressure 173/86, O2 saturation 98%. EXTREMITIES: Ulceration was inspected. Some tendon exposed. Extensor longus tendon exposed. Some granulation tissue and some fibrosis noted. No bone visualized at this time. LABS: Show a white blood cell count 9.6. ASSESSMENT 1. Grade 3 ulcer with periwound cellulitis. 2. Diabetic neuropathy and possible osteomyelitis. PLAN: Dressing was changed. SilvaSorb gel was applied followed by dilute wet-to-dry Betadine. Will continue IV antibiotics. Dressing will be changed possibly on Tuesday. Possible discharge date will be on Tuesday. Job#: [id number] [place]
[2017-09-25] MEDS: INSULIN DETEMIR 100 UNIT/ML PEN SQ SCH (20:45)
[2017-09-25] MEDS: SIMVASTATIN 20 MG TAB PO SCH (20:55)
[2017-09-26] VITALS (9 sets, daily range): BP systolic 113–160; BP diastolic 58–84
[2017-09-26] MEDS: VANCOMYCIN 1GM/NS 250 ML 250 ML IV SCH (03:33)
[2017-09-26] MEDS: SODIUM CHLORIDE 0.9% 1000ML 1,000 ML IV SCH (03:58)
[2017-09-26] MEDS: PIPER-TAZ 3.375 GM 50 ML IV SCH (06:03)
[2017-09-26] MEDS ORDERED: SODIUM CHLORIDE IV SCH (06:45)
[2017-09-26] MEDS ORDERED: NAFCILLIN IV SCH (06:45)
[2017-09-26 07:22] LABS: BASOPHILS # (AUTO) 0.1 (0.0-0.1); EOSINOPHILS # (AUTO) 0.1 (0.0-0.4); EOSINOPHILS % 1.3 % (0.0-6.0); HEMATOCRIT 40.4 % (38.2-49.6); HEMOGLOBIN 13.3 g/dL (14.0-18.0); LYMPHOCYTES # (AUTO) 3.1 (1.0-3.2); LYMPHOCYTES % 28.7 % (18.0-39.1); MEAN CORPUSCULAR HEMOGLOBIN 28.4 pg (28-32); MEAN CORPUSCULAR HGB CONC 32.9 g/dL (31-35); MEAN CORPUSCULAR VOLUME 86.1 fL (81-99); MONOCYTES # (AUTO) 0.7 (0.2-0.8); MONOCYTES % 6.7 % (4.4-11.3); NEUTROPHILS # (AUTO) 6.4 (2.1-6.9); NEUTROPHILS % 60.4 % (38.7-80.0); PLATELET COUNT 361 x10e3/uL (140-360); RED BLOOD COUNT 4.69 x10e6/uL (4.3-5.7); RED CELL DISTRIBUTION WIDTH 12.1 % (11.7-14.4)
[2017-09-26 08:15] LABS: ANION GAP 12.4 mmol/L (8-16); BLOOD UREA NITROGEN 10 mg/dL (7-26); BUN/CREATININE RATIO 13 (6-25); CALCIUM 9.1 mg/dL (8.4-10.2); CARBON DIOXIDE 26 mmol/L (22-29); CHLORIDE 105 mmol/L (98-107); EST GLOMERULAR FILTRATION RATE > 60 ML/MIN (60-); GLUCOSE 151 mg/dL (74-118); POTASSIUM 4.4 mmol/L (3.5-5.1); SODIUM 139 mmol/L (136-145)
[2017-09-26] MEDS: LISINOPRIL 20 MG TAB PO SCH ×2 (08:25→17:03)
[2017-09-26] MEDS: GLIMEPIRIDE 2 MG TAB PO SCH ×2 (08:25→17:02)
[2017-09-26] MEDS: METOPROLOL TARTRATE 50 MG TAB PO SCH ×2 (08:25→21:00)
[2017-09-26] MEDS: AMLODIPINE BESYLATE 5 MG TAB PO SCH (08:25)
[2017-09-26] MEDS: METFORMIN HCL 500 MG TAB PO SCH ×2 (08:25→17:02)
[2017-09-26] MEDS: FAMOTIDINE 20 MG TAB PO SCH ×2 (08:25→17:02)
[2017-09-26] MEDS: ALPRAZOLAM 0.25 MG TAB PO SCH ×2 (08:26→17:00)
[2017-09-26] MEDS: INSULIN REGULAR, HUMAN 100 UNIT/1 ML 3ML VIAL SQ SCH ×4 (08:29→21:00)
--- NOTE | 2017-09-26 09:30 | Progress Note ---
DATE: September 26, 2017 SUBJECTIVE: Patient was seen at bedside accompanied by family members. Doing better. Decreased pain to the right lower extremity. Denying any history of fever, chills, nausea, or vomiting. OBJECTIVE VITALS: Afebrile. Vital signs stable. EXTREMITIES: CFT to all toes less than 4 seconds. Decreased cellulitis to the leg and foot noted. ASSESSMENT: Grade 4 ulcer with possible osteomyelitis. PLAN: Will continue local wound care. Continue IV antibiotics. Anticipate discharge date will be Tuesday or . Will continue IV antibiotics. Job#: [id number] PR
--- NOTE | 2017-09-26 11:10 | Progress Note ---
DATE: September 26, 2017 TIME: 6:07 a.m. OVERNIGHT: No events. Pain is controlled. REVIEW OF SYSTEMS: Denies any dizziness or chest pain. PHYSICAL EXAMINATION VITAL SIGNS: Reviewed. GENERAL: A tired-appearing man resting in bed. HEENT: Anicteric. CARDIOVASCULAR: Normal S1 and S2. LUNGS: Moderate breath sounds. ABDOMEN: Soft, nontender and nondistended. EXTREMITIES: He has a right foot in dressing clean and dry. SKIN: Dry. PSYCHIATRIC: Normal affect. LABS: Reviewed. MEDICATIONS: Reviewed. ASSESSMENT: A 47-year-old man with: 1. Diabetic foot ulcer with methicillin-sensitive Staphylococcus aureus. 2. Newly diagnosed diabetes: Hemoglobin A1c is 10.6, LDL 140, triglycerides 111. 3. Hyperlipidemia. 4. Overweight state: Body mass index 28.1. 5. Hypertensive urgency. 6. Metabolic acidosis. PLAN 1. Discontinue vancomycin and Zosyn. Use nafcillin. The patient has MSSA infection. 2. Continue local wound care. 3. Continue pain control. 4. Titrate metformin up and add glimepiride. 5. Check labs. 6. Discharge planning. Job#: [id number] [place]
[2017-09-26] MEDS: NAFCILLIN SOD 2 GM/NS 100ML 100 ML IV SCH ×3 (12:21→23:47)
[2017-09-26] MEDS: INSULIN DETEMIR 100 UNIT/ML PEN SQ SCH (21:00)
[2017-09-26] MEDS: SIMVASTATIN 20 MG TAB PO SCH (21:00)
--- NOTE | 2017-09-26 23:39 | Progress Note ---
DATE: September 26, 2017 CARDIOLOGY PROGRESS NOTE SUBJECTIVE: Patient denies chest pain or shortness of breath. OBJECTIVE: VITAL SIGNS: Temperature 98 degrees, pulse 75, respiratory rate 18, blood pressure 146/78, oxygen saturation 99% on room air. GENERAL: Awake, alert, in no acute distress. LUNGS: Clear to auscultation bilaterally. No wheezes or crackles. CARDIOVASCULAR: Normal rate, regular rhythm. No murmur. Normal S1, S2. ABDOMEN: Soft, nontender. EXTREMITIES: No edema. Right foot with surgical dressing in place. CARDIAC MEDICATIONS: 1. Metoprolol tartrate 150 mg p.o. q.12h. 2. Simvastatin 20 mg p.o. nightly. 3. Lisinopril 20 mg p.o. b.i.d. 4. Amlodipine 2.5 mg p.o. daily. LABS: WBC 10.63, hemoglobin 13.3, hematocrit 40.4, platelets 361,000. Sodium 139, potassium 4.4, chloride 105, CO2 26, BUN 10, creatinine 0.8. TELEMETRY: Normal sinus rhythm. IMPRESSION: 1. Methicillin-susceptible Staphylococcus aureus, diabetic ulcer of the right foot. 2. Diabetes mellitus, newly diagnosed. 3. Hypertension. 4. Hyperlipidemia. RECOMMENDATIONS: The patient's blood pressure continues to be elevated. Amlodipine was added, we will monitor response. Continue current cardiac medications. Bilateral lower extremity arterial Dopplers were without evidence of peripheral arterial disease. No angiogram is indicated at this time. Monitor wound for healing. Wound care per podiatry. Antibiotics per primary service. Thank you for this consult. We will continue to follow. Job#: [id number]
[2017-09-27] VITALS (7 sets, daily range): BP systolic 129–163; BP diastolic 74–93
[2017-09-27] MEDS: NAFCILLIN SOD 2 GM/NS 100ML 100 ML IV SCH ×4 (05:05→23:48)
[2017-09-27] MEDS: INSULIN REGULAR, HUMAN 100 UNIT/1 ML 3ML VIAL SQ SCH ×4 (07:30→20:50)
[2017-09-27] MEDS: ALPRAZOLAM 0.25 MG TAB PO SCH ×2 (09:00→17:00)
--- NOTE | 2017-09-27 09:02 | Progress Note ---
DATE: September 27, 2017 SUBJECTIVE: Patient seen at bedside doing somewhat better. Denies any history of fever, chills, nausea or vomiting. OBJECTIVE: Vitals: Afebrile. Pulse rate 78, respirations 16, blood pressure 129/75. O2 saturation is 98%. White blood cell count is 10.6. Ulceration to the right lower extremity is better. Still some extensor longus tendon exposed. No bone exposed. Granulation tissue noted. Decreased cellulitis present. No foul smell. Some drainage present. Ulcer is approximately 2.5 to 3 cm in diameter, down to subcutaneous tissue and muscle. ASSESSMENT: Grade-3 ulcer healing. Cellulitis with possible osteomyelitis. PLAN: Will continue IV antibiotics. Dressing was changed. Patient seen at bedside accompanied with Dr. Read. Possible discharge date will probably be when the dressing will be changed once again. Job#: [id number]
[2017-09-27] MEDS: FAMOTIDINE 20 MG TAB PO SCH ×2 (09:26→17:30)
[2017-09-27] MEDS: GLIMEPIRIDE 2 MG TAB PO SCH ×2 (09:26→17:34)
[2017-09-27] MEDS: METOPROLOL TARTRATE 50 MG TAB PO SCH ×2 (09:26→20:50)
[2017-09-27] MEDS: AMLODIPINE BESYLATE 5 MG TAB PO SCH (09:26)
[2017-09-27] MEDS: METFORMIN HCL 500 MG TAB PO SCH ×2 (09:26→17:34)
[2017-09-27] MEDS: LISINOPRIL 20 MG TAB PO SCH ×2 (09:27→17:34)
--- NOTE | 2017-09-27 16:39 | Progress Note ---
DATE: September 27, 2017 CARDIOLOGY PROGRESS NOTE SUBJECTIVE: The patient denies chest pain. No shortness of breath. OBJECTIVE VITAL SIGNS: Temperature 97.2 degrees, pulse 79, respiratory rate 18, blood pressure 163/93, oxygen saturation 97% on room air. GENERAL: Awake, alert, in no acute distress. LUNGS: Clear to auscultation bilaterally. No wheezes or crackles. CARDIOVASCULAR: Normal rate, regular rhythm. Normal S1, S2. ABDOMEN: Soft, nontender. EXTREMITIES: No edema. Right foot with surgical dressing in place. CARDIAC MEDICATIONS: 1. Metoprolol tartrate 150 mg p.o. q.12h. 2. Simvastatin 20 mg p.o. nightly. 3. Lisinopril 20 mg p.o. b.i.d. 4. Amlodipine 2.5 mg p.o. daily. LABS: None today. TELEMETRY: Normal sinus rhythm. IMPRESSION: 1. Methicillin-susceptible Staphylococcus aureus, diabetic ulcer of the right foot. 2. Diabetes mellitus, newly diagnosed. 3. Hypertension. 4. Hyperlipidemia. RECOMMENDATIONS: The patient's blood pressure is, for the most part, improved with addition of amlodipine. Continue current cardiac medications. Bilateral lower extremity arterial Dopplers were without evidence of peripheral arterial disease. No angiogram is indicated at this time. Monitor wound for healing. Wound care per podiatry. Antibiotics per primary service. Thank you for this consult. We will continue to follow. Job#: [id number]
[2017-09-27] MEDS: SIMVASTATIN 20 MG TAB PO SCH (20:50)
[2017-09-27] MEDS: INSULIN DETEMIR 100 UNIT/ML PEN SQ SCH (20:51)
--- NOTE | 2017-09-27 23:33 | Progress Note ---
DATE: September 27, 2017 TIME: 8:00 a.m. OVERNIGHT: No events. REVIEW OF SYSTEMS: Denies any dizziness, chest pain. PHYSICAL EXAMINATION: VITAL SIGNS: Reviewed. GENERAL APPEARANCE: Tired-appearing man resting in bed. HEENT: Anicteric. Pupils respond to light. No oral lesions. CARDIOVASCULAR: Normal S1 and S2. LUNGS: Moderate breath sounds. ABDOMEN: Soft, nontender, nondistended. EXTREMITIES: Dressing in place, clean and dry. SKIN: Dry. PSYCHIATRIC: Normal affect. LABS: Reviewed. MEDICATIONS: Reviewed. ASSESSMENT: A 47-year-old man. 1. Diabetic foot ulcer with methicillin-sensitive Staphylococcus aureus. 2. Newly diagnosed diabetes. Hemoglobin A1c 10.6, LDL 140, triglycerides 111. 3. Hyperlipidemia. 4. Overweight state. Body mass index is 28.1. 5. Hypertensive urgency. 6. Metabolic acidosis. PLAN: 1. Titrate beta hipolito. 2. Continue antibiotics. 3. Continue local wound care. 4. Continue titrating metformin and glimepiride and reducing insulin. 5. Continue diabetic diet. 6. Discharge planning. Job#: [id number]
[2017-09-28] VITALS (7 sets, daily range): BP systolic 128–151; BP diastolic 67–82
[2017-09-28] MEDS: NAFCILLIN SOD 2 GM/NS 100ML 100 ML IV SCH ×4 (05:27→23:25)
[2017-09-28] MEDS: INSULIN REGULAR, HUMAN 100 UNIT/1 ML 3ML VIAL SQ SCH ×4 (07:30→20:49)
[2017-09-28] MEDS: FAMOTIDINE 20 MG TAB PO SCH ×2 (07:50→16:25)
[2017-09-28] MEDS: GLIMEPIRIDE 2 MG TAB PO SCH ×2 (07:52→16:53)
[2017-09-28] MEDS: METFORMIN HCL 500 MG TAB PO SCH ×2 (07:52→16:53)
[2017-09-28] MEDS: LISINOPRIL 20 MG TAB PO SCH ×2 (08:02→16:53)
[2017-09-28] MEDS: AMLODIPINE BESYLATE 5 MG TAB PO SCH (08:02)
--- NOTE | 2017-09-28 08:55 | Progress Note ---
DATE: September 28, 2017 SUBJECTIVE: Patient is doing better. Denying any history of fever, chills, nausea, or vomiting. Decreased pain to the right lower extremity. OBJECTIVE VITALS: Afebrile, pulse rate 89, respirations 18, blood pressure 139/72, O2 saturation 97%. EXTREMITIES: CFT to all toes less than 3 seconds. Decreased cellulitis and edema to the right lower extremity. ASSESSMENT: Grade 3 ulceration, right foot, with possible osteomyelitis. PLAN: Will continue IV antibiotics. Dressing will be changed tomorrow. If looking good, will be discharged. Will continue on oral antibiotics after discharge. Job#: [id number] LOVE
[2017-09-28] MEDS: ALPRAZOLAM 0.25 MG TAB PO SCH ×2 (09:00→16:53)
[2017-09-28] MEDS: METOPROLOL TARTRATE 50 MG TAB PO SCH ×2 (09:02→20:49)
[2017-09-28] MEDS: PIOGLITAZONE HCL 15 MG TAB PO SCH (10:05)
[2017-09-28] MEDS: SIMVASTATIN 20 MG TAB PO SCH (20:49)
--- NOTE | 2017-09-28 22:12 | Progress Note ---
DATE: September 28, 2017 CARDIOLOGY PROGRESS NOTE SUBJECTIVE: The patient denies chest pain or shortness of breath. OBJECTIVE VITAL SIGNS: Temperature 97.1 degrees, pulse 83, respiratory rate 20, blood pressure 146/77, oxygen saturation 98% on room air. GENERAL: Awake, alert, in no acute distress. LUNGS: Clear to auscultation bilaterally. No wheezes or crackles. CARDIOVASCULAR: Normal rate, regular rhythm. Normal S1, S2. ABDOMEN: Soft, nontender. EXTREMITIES: No edema. Right foot with surgical dressing in place. CARDIAC MEDICATIONS: 1. Metoprolol tartrate 200 mg p.o. q.12h. 2. Simvastatin 20 mg p.o. nightly. 3. Lisinopril 20 mg p.o. b.i.d. 4. Amlodipine 2.5 mg p.o. daily. LABS: None today. TELEMETRY: Normal sinus rhythm. IMPRESSION: 1. Methicillin-susceptible Staphylococcus aureus, diabetic ulcer of the right foot. 2. Diabetes mellitus, newly diagnosed. 3. Hypertension. 4. Hyperlipidemia. RECOMMENDATIONS: The patient's blood pressure is labile, but remains elevated. We will increase amlodipine. Continue current cardiac medications otherwise. The patient's bilateral lower extremity arterial Dopplers were without evidence of peripheral arterial disease. No angiogram is indicated at this time. Monitor wound for healing. Wound care per podiatry. Antibiotics per primary service. Thank you for this consult. We will continue to follow. Job#: [id number]
[2017-09-29] VITALS: BP 134/70
[2017-09-29 04:00] VITALS: BP 133/63
[2017-09-29] MEDS: NAFCILLIN SOD 2 GM/NS 100ML 100 ML IV SCH (05:30)
[2017-09-29] MEDS ORDERED: AMARYL2 MG PO (06:55)
[2017-09-29] MEDS ORDERED: LISINOPRIL20 MG PO (06:55)
[2017-09-29] MEDS ORDERED: MINOCYCLINE HCL50 MG PO (06:55)
[2017-09-29] MEDS ORDERED: SIMVASTATIN20 MG PO (06:55)
[2017-09-29] MEDS ORDERED: METFORMIN HCL500 MG PO (06:55)
[2017-09-29] MEDS ORDERED: ACTOS15 MG PO (06:55)
[2017-09-29] MEDS ORDERED: METOPROLOL TART50 MG PO (06:55)
[2017-09-29] MEDS ORDERED: NORVASC5 MG PO (06:55)
[2017-09-29 07:16] LABS: BASOPHILS # (AUTO) 0.1 (0.0-0.1); BASOPHILS % 0.6 % (0.0-1.0); EOSINOPHILS # (AUTO) 0.1 (0.0-0.4); HEMATOCRIT 40.3 % (38.2-49.6); HEMOGLOBIN 13.7 g/dL (14.0-18.0); LYMPHOCYTES # (AUTO) 2.7 (1.0-3.2); LYMPHOCYTES % 26.9 % (18.0-39.1); MEAN CORPUSCULAR VOLUME 85.2 fL (81-99); MONOCYTES # (AUTO) 0.8 (0.2-0.8); NEUTROPHILS # (AUTO) 6.3 (2.1-6.9); NEUTROPHILS % 62.5 % (38.7-80.0); PLATELET COUNT 376 x10e3/uL (140-360); RED BLOOD COUNT 4.73 x10e6/uL (4.3-5.7); RED CELL DISTRIBUTION WIDTH 12.5 % (11.7-14.4)
[2017-09-29 07:34] VITALS: BP 138/72
[2017-09-29 07:35] LABS: ANION GAP 11.9 mmol/L (8-16); BLOOD UREA NITROGEN 9 mg/dL (7-26); BUN/CREATININE RATIO 11 (6-25); CALCIUM 9.6 mg/dL (8.4-10.2); CARBON DIOXIDE 29 mmol/L (22-29); CHLORIDE 105 mmol/L (98-107); CREATININE, SERUM 0.83 mg/dL (0.72-1.25); EST GLOMERULAR FILTRATION RATE > 60 ML/MIN (60-); GLUCOSE 167 mg/dL (74-118); POTASSIUM 4.9 mmol/L (3.5-5.1); SODIUM 141 mmol/L (136-145)
--- NOTE | 2017-09-29 07:40 | Progress Note ---
DATE: September 29, 2017 SUBJECTIVE: Patient seen at bedside. Doing well. Ready to go home. OBJECTIVE: Vitals: Afebrile. Vital signs stable. Ulceration to the right lower extremity shows very little tendon at this time. It is less than 3 cm in diameter, healing nicely. Some granular fibrotic base also noted. ASSESSMENT: Grade-3 ulceration, right foot, with resolving periwound cellulitis. PLAN: Dressing was changed. Patient instructed he could go home today after seen by Dr. Read. He is to remain minimal weightbearing with the aid of a surgical shoe. He is to follow up next week on Tuesday. He is not to wet his foot. Job#: [id number]
[2017-09-29] MEDS: INSULIN REGULAR, HUMAN 100 UNIT/1 ML 3ML VIAL SQ SCH (07:45)
[2017-09-29] MEDS: GLIMEPIRIDE 2 MG TAB PO SCH (07:50)
[2017-09-29] MEDS: METFORMIN HCL 500 MG TAB PO SCH (07:50)
[2017-09-29] MEDS: FAMOTIDINE 20 MG TAB PO SCH (07:50)
[2017-09-29] MEDS: PIOGLITAZONE HCL 15 MG TAB PO SCH (08:30)
[2017-09-29] MEDS: METOPROLOL TARTRATE 50 MG TAB PO SCH (08:30)
[2017-09-29] MEDS: LISINOPRIL 20 MG TAB PO SCH (08:30)
[2017-09-29] MEDS ORDERED: ONDANSETRON HCL 4 MG ORAL DISINTEGRATING TAB PO PRN (08:45)
--- NOTE | 2017-09-29 08:53 | Progress Note ---
DATE: September 28, 2017 TIME: 8:30 a.m. OVERNIGHT: No events. REVIEW OF SYSTEMS: Denies any dizziness or chest pain. PHYSICAL EXAMINATION VITAL SIGNS: Reviewed. GENERAL: A tired-appearing man resting in bed. HEENT: Anicteric. CARDIOVASCULAR: Normal S1 and S2. LUNGS: Moderate breath sounds. ABDOMEN: Soft and nontender. EXTREMITIES: Has a dressing in place clean and dry. SKIN: Dry. PSYCHIATRIC: Normal affect. LABS: Reviewed. MEDICATIONS: Reviewed. ASSESSMENT: A 47-year-old man with: 1. Diabetic foot ulcer with methicillin-resistant Staphylococcus aureus. 2. Newly diagnosed diabetes mellitus: Hemoglobin A1c 10.6, LDL 140 and triglycerides 111. 3. Hyperlipidemia. 4. Overweight state: Body mass index is 28.1. 5. Hypertensive urgency. 6. Metabolic acidosis. PLAN 1. Continue beta hipolito management. 2. Continue local wound care. 3. Continue diabetes management. 4. Continue antibiotics. 5. Discharge planning. Job#: [id number] [place]
[2017-09-29] MEDS ORDERED: AMLODIPINE BESYLATE 5 MG TAB PO SCH (09:00)
--- NOTE | 2017-09-29 14:42 | Discharge Summary ---
PRINCIPAL DIAGNOSES 1. Diabetic foot ulcer with methicillin-sensitive Staphylococcus aureus. 2. Newly diagnosed diabetes mellitus. Glycosylated hemoglobin is 10.6, low-density lipoprotein 140 and triglycerides 111. 3. Hyperlipidemia. 4. Overweight state. Body mass index is 28.1. 5. Hypertensive urgency. 6. Metabolic acidosis. SECONDARY DIAGNOSIS: Overweight state. CHIEF COMPLAINT: Right foot redness and ulceration. HISTORY OF PRESENT ILLNESS: This is a 47-year-old man who developed right foot ulcer. Please refer to the H and P for further details. HOSPITAL COURSE: The patient was found to have diabetic foot ulcer positive for methicillin-sensitive Staph aureus, treated with incision, drainage, debridement and IV antibiotics. The patient did well. He was diagnosed with diabetes mellitus. Hemoglobin A1c is 10.6, LDL 140, triglycerides 111. He was started on diabetic diet. Hypertensive urgency was managed with medication regimen and titration. He is doing better and currently appropriate for discharge with followup. DISCHARGE MEDICATIONS: Per electronic medical record. FOLLOWUP 1. With primary care doctor in [address] Vega in 10 days. CONDITION ON DISCHARGE: Stable and improving. DISCHARGE LOCATION: Home with antibiotics for additional 21 days. AJ MEDELLIN MD Job#: [id number]
== END 2017-09-29 09:47 | disposition home or self-care (01) | DRG 629 ==
LOC: ER 15:41 → ERHOLD 18:53 → MED/SURG3 20:58
PROVIDERS: ADMIT Internal Medicine; ATTEND Internal Medicine
PROC: 0QBN0ZZ Excision of Right Metatarsal, Open Approach (ICD-10-PCS; principal; 2017-09-22 07:56)
DX: E11.621 Type 2 diabetes mellitus with foot ulcer (principal); L03.115 Cellulitis of right lower limb; L97.519 Non-pressure chronic ulcer of other part of right foot with unspecified severity; E87.2 Acidosis; E11.42 Type 2 diabetes mellitus with diabetic polyneuropathy; I10 Essential (primary) hypertension; R00.0 Tachycardia, unspecified; E66.3 Overweight; Z68.28 Body mass index [BMI] 28.0-28.9, adult; E78.5 Hyperlipidemia, unspecified; Z72.0 Tobacco use; B95.61 Methicillin susceptible Staphylococcus aureus infection as the cause of diseases classified elsewhere; Z83.3 Family history of diabetes mellitus
CPT/HCPCS: 36415; 71045; 80048; 80053; 80061; 80202; 82948; 83036; 83605; 84443; 85025; 85651; 87040; 87071; 87075; 87186; 87205; 88302; 88305; 93005; 93925; 96360; 96361; 99284; J0720; J1100; J1885; J2001; J2060; J2250; J2405; J2543; J3370; J7030; J7050